=== PATIENT | male | born 1985 | race Caucasian/White ===

== ENCOUNTER 2022-09-17 17:20 | Inpatient (IN) | payer OTHER ==
[2022-09-17 18:50] VITALS: BMI 21.2
[2022-09-17] MEDS ORDERED: diazePAM 5 MG TABLET ONE ×2 (21:11→21:13)
[2022-09-17] MEDS: diazePAM 5 MG TABLET PO PRN (21:14)
[2022-09-17] MEDS ORDERED: DICYCLOMINE HCL 10 MG CAPSULE PO PRN (21:16)
[2022-09-17] MEDS ORDERED: BENZOCAINE/MENTHOL (CHLORASEPTIC ) LOZENGE MM PRN (21:16)
[2022-09-17] MEDS ORDERED: ACETAMINOPHEN 325 MG TABLET (FP) PO PRN (21:16)
[2022-09-17] MEDS ORDERED: NICOTINE 10 MG CARTRIDGE (INHALER) IH PRN (21:16)
[2022-09-17] MEDS ORDERED: IBUPROFEN 600 MG TABLET (FP) PO PRN (21:16)
[2022-09-17] MEDS ORDERED: BENZONATATE 200 MG CAPSULE PO PRN (21:16)
[2022-09-17] MEDS ORDERED: LOPERAMIDE HCL 2 MG CAPSULE PO PRN (21:16)
[2022-09-17] MEDS ORDERED: guaiFENesin 600 MG TABLET.ER (FP) PO PRN (21:16)
[2022-09-17] MEDS ORDERED: MAGNESIUM HYDROX 2400MG/30ML ORAL SUSPENSION 30 ML CUP PO PRN (21:16)
[2022-09-17] MEDS ORDERED: BISMUTH SUBSALICYLATE 524 MG/30 ML PO PRN (21:16)
[2022-09-17] MEDS ORDERED: IBUPROFEN 400 MG TABLET (FP) PO PRN (21:16)
[2022-09-17] MEDS ORDERED: NALOXONE HCL 0.4 MG/ML VIAL IM PRN (21:16)
[2022-09-17] MEDS ORDERED: ONDANSETRON *ODT* 4 MG TABLET SL PRN (21:16)
[2022-09-17] MEDS ORDERED: POLYETHYLENE GLYCOL (HEALTHYLAX) 3350 17 GM PACKET PO PRN (21:16)
[2022-09-17] MEDS ORDERED: NALOXONE HCL (KLOXXADO) 8 MG SPRAY NS PRN (21:16)
[2022-09-17] MEDS ORDERED: MELATONIN 5 MG TABLETS PO SCH (22:00)
[2022-09-17] MEDS ORDERED: IBUPROFEN 600 MG TABLET (FP) PO ONE (22:34)
[2022-09-17] MEDS: THIAMINE HCL 100 MG TABLET (FP) PO SCH (22:36)
[2022-09-17] MEDS: hydrOXYzine PAMOATE 25 MG CAPSULE (FP) PO PRN (22:59)
[2022-09-17] MEDS: diazePAM 5 MG TABLET PO SCH (23:03)
[2022-09-18] MEDS: diazePAM 5 MG TABLET PO SCH ×4 (05:46→22:02)
[2022-09-18] MEDS ORDERED: methaDONE HCL 10 MG TABLET PO ONE ×2 (09:32)
[2022-09-18] MEDS: PRENATAL VITAMINS W/ FOLIC ACID TABLET (FP) PO SCH (10:35)
[2022-09-18] MEDS: diazePAM 5 MG TABLET PO PRN (13:25)
[2022-09-18] MEDS: THIAMINE HCL 100 MG TABLET (FP) PO SCH (22:02)
[2022-09-18] MEDS: traZODone HCL 50 MG TABLET (FP) PO SCH (22:02)
[2022-09-19] MEDS: diazePAM 5 MG TABLET PO SCH ×3 (05:19→22:55)
[2022-09-19] MEDS ORDERED: methaDONE HCL 10 MG TABLET PO ONE (09:36)
[2022-09-19] MEDS: PRENATAL VITAMINS W/ FOLIC ACID TABLET (FP) PO SCH (10:39)
[2022-09-19] MEDS ORDERED: NICOTINE POLACRILEX 2 MG GUM BUC PRN (11:07)
[2022-09-19] MEDS: NICOTINE 14 MG/24 HOURS TOPICAL PATCH TD SCH (12:06)
[2022-09-19] MEDS: diazePAM 5 MG TABLET PO PRN (20:25)
[2022-09-19] MEDS: hydrOXYzine PAMOATE 25 MG CAPSULE (FP) PO PRN (22:39)
[2022-09-19] MEDS: traZODone HCL 50 MG TABLET (FP) PO SCH (22:39)
[2022-09-19] MEDS: THIAMINE HCL 100 MG TABLET (FP) PO SCH (22:40)
[2022-09-20] MEDS: diazePAM 5 MG TABLET PO SCH ×2 (05:42→18:55)
[2022-09-20] MEDS ORDERED: methaDONE HCL 10 MG TABLET PO SCH (06:00)
[2022-09-20] MEDS: NICOTINE 14 MG/24 HOURS TOPICAL PATCH TD SCH (10:04)
[2022-09-20] MEDS: diazePAM 5 MG TABLET PO PRN ×2 (10:04→14:37)
[2022-09-20] MEDS: PRENATAL VITAMINS W/ FOLIC ACID TABLET (FP) PO SCH (10:04)
[2022-09-20] MEDS: MAG HYDROX/AL HYDROX/SIMETH 30 ML UNIT-DOSE CUP PO PRN ×2 (11:29→22:24)
[2022-09-20 12:18] LABS: HEMATOCRIT 39.4 % (35.4-49); MCH 28.4 pg (25.7-33.7); MEAN CELL VOLUME 86.1 fl (80-96); MEAN PLT VOLUME 9.9 fl (7.5-11.1); PLATELET COUNT 187 10^3/uL (134-434); RBC 4.58 M/mm3 (4.00-5.60); RDW 13.2 % (11.9-15.9); WHITE BLOOD COUNT 4.9 K/mm3 (4.0-10.0)
[2022-09-20 12:26] LABS: POTASSIUM 4.1 mmol/L (3.5-5.1)
[2022-09-20 12:32] LABS: CALCIUM 9.3 mg/dL (8.5-10.1)
[2022-09-20 12:33] LABS: ALBUMIN 3.3 g/dl (3.4-5.0); BLOOD UREA NITROGEN 14.3 mg/dL (7-18)
[2022-09-20 12:36] LABS: BILIRUBIN,TOTAL 0.2 mg/dL (0.2-1); TOT PROT 6.6 g/dl (6.4-8.2)
[2022-09-20] MEDS: traZODone HCL 50 MG TABLET (FP) PO SCH (22:23)
[2022-09-20] MEDS: THIAMINE HCL 100 MG TABLET (FP) PO SCH (22:23)
[2022-09-21 05:46] VITALS: RESP 18
[2022-09-21] MEDS ORDERED: diazePAM 5 MG TABLET PO ONE (06:00)
[2022-09-21] MEDS: PRENATAL VITAMINS W/ FOLIC ACID TABLET (FP) PO SCH (09:10)
[2022-09-21] MEDS: NICOTINE 14 MG/24 HOURS TOPICAL PATCH TD SCH (09:11)
[2022-09-21 09:43] VITALS: BP 113/68; PULSE 66; TEMP 97.3
== END 2022-09-21 12:32 | disposition other institution (70) | DRG 773 ==
LOC: YASAS 17:20 → Y6N 22:27
PROVIDERS: ADMIT Allergy & Immunology; ATTEND Surgery
PROC: HZ2ZZZZ Detoxification Services for Substance Abuse Treatment (ICD-10-PCS; principal; 2022-09-17)
DX: F13.230 Sedative, hypnotic or anxiolytic dependence with withdrawal, uncomplicated (principal); F11.20 Opioid dependence, uncomplicated; F14.20 Cocaine dependence, uncomplicated; F17.213 Nicotine dependence, cigarettes, with withdrawal; F19.282 Other psychoactive substance dependence with psychoactive substance-induced sleep disorder; F19.280 Other psychoactive substance dependence with psychoactive substance-induced anxiety disorder; F19.24 Other psychoactive substance dependence with psychoactive substance-induced mood disorder; F32.9 Major depressive disorder, single episode, unspecified; K21.9 Gastro-esophageal reflux disease without esophagitis; Z62.810 Personal history of physical and sexual abuse in childhood; Z86.69 Personal history of other diseases of the nervous system and sense organs
CPT/HCPCS: 36415; 80053; 85027; 86780; 87635; 87811; 93005; 93010

== ENCOUNTER 2022-09-21 12:27 | Inpatient (IN) | payer OTHER ==
[~2022-09-21 12:27] MED LIST: AMMONIUM LACTATE 12% LOTION 225 GM BOTTLE TP PRN; BENZOCAINE/MENTHOL (CHLORASEPTIC ) LOZENGE MM PRN; BENZONATATE 200 MG CAPSULE PO PRN; COLLOIDAL OATMEAL 1 BAR EACH TP PRN; LOPERAMIDE HCL 2 MG CAPSULE PO PRN; MAGNESIUM HYDROX 2400MG/30ML ORAL SUSPENSION 30 ML CUP PO PRN; METHOCARBAMOL 500 MG TABLET PO PRN; NALOXONE HCL (KLOXXADO) 8 MG SPRAY NS PRN; NALOXONE HCL 0.4 MG/ML VIAL IVPUSH PRN; NICOTINE 14 MG/24 HOURS TOPICAL PATCH TD PRN; NICOTINE POLACRILEX 2 MG GUM BUC PRN; POLYETHYLENE GLYCOL (HEALTHYLAX) 3350 17 GM PACKET PO PRN; guaiFENesin 600 MG TABLET.ER (FP) PO PRN
[2022-09-21] MEDS: THIAMINE HCL 100 MG TABLET (FP) PO SCH (21:14)
[2022-09-21] MEDS: traZODone HCL 50 MG TABLET (FP) PO SCH (21:14)
[2022-09-21] MEDS: MELATONIN 5 MG TABLETS PO SCH (21:14)
[2022-09-21] MEDS: MAG HYDROX/AL HYDROX/SIMETH 30 ML UNIT-DOSE CUP PO PRN (21:15)
[2022-09-22] MEDS ORDERED: methaDONE HCL 10 MG TABLET PO SCH (06:00)
[2022-09-22] MEDS: PRENATAL VITAMINS W/ FOLIC ACID TABLET (FP) PO SCH (09:57)
[2022-09-22] MEDS: MAG HYDROX/AL HYDROX/SIMETH 30 ML UNIT-DOSE CUP PO PRN (09:57)
[2022-09-22] MEDS: traZODone HCL 50 MG TABLET (FP) PO SCH (21:18)
[2022-09-22] MEDS: THIAMINE HCL 100 MG TABLET (FP) PO SCH (21:18)
[2022-09-22] MEDS: MELATONIN 5 MG TABLETS PO SCH (21:18)
[2022-09-23] MEDS: hydrOXYzine PAMOATE 25 MG CAPSULE (FP) PO PRN (09:57)
[2022-09-23] MEDS: PRENATAL VITAMINS W/ FOLIC ACID TABLET (FP) PO SCH (09:58)
[2022-09-23] MEDS: THIAMINE HCL 100 MG TABLET (FP) PO SCH (21:12)
[2022-09-23] MEDS: MAG HYDROX/AL HYDROX/SIMETH 30 ML UNIT-DOSE CUP PO PRN (21:12)
[2022-09-23] MEDS: MELATONIN 5 MG TABLETS PO SCH (21:12)
[2022-09-23] MEDS: traZODone HCL 50 MG TABLET (FP) PO SCH (21:13)
[2022-09-24] MEDS: PRENATAL VITAMINS W/ FOLIC ACID TABLET (FP) PO SCH (09:40)
[2022-09-24] MEDS: BACITRACIN ZINC 15 GM TUBE TOPICAL OINTMENT TP SCH ×2 (13:05→21:23)
[2022-09-24] MEDS: MAG HYDROX/AL HYDROX/SIMETH 30 ML UNIT-DOSE CUP PO PRN ×2 (13:07→21:23)
[2022-09-24] MEDS: traZODone HCL 50 MG TABLET (FP) PO SCH (21:23)
[2022-09-24] MEDS: MELATONIN 5 MG TABLETS PO SCH (21:23)
[2022-09-24] MEDS: THIAMINE HCL 100 MG TABLET (FP) PO SCH (21:23)
[2022-09-25] MEDS: BACITRACIN ZINC 15 GM TUBE TOPICAL OINTMENT TP SCH ×2 (10:14→21:20)
[2022-09-25] MEDS: PRENATAL VITAMINS W/ FOLIC ACID TABLET (FP) PO SCH (10:15)
[2022-09-25] MEDS: THIAMINE HCL 100 MG TABLET (FP) PO SCH (21:19)
[2022-09-25] MEDS: MELATONIN 5 MG TABLETS PO SCH (21:20)
[2022-09-25] MEDS: MAG HYDROX/AL HYDROX/SIMETH 30 ML UNIT-DOSE CUP PO PRN (21:20)
[2022-09-25] MEDS: traZODone HCL 50 MG TABLET (FP) PO SCH (21:20)
[2022-09-26] MEDS: PRENATAL VITAMINS W/ FOLIC ACID TABLET (FP) PO SCH (10:19)
[2022-09-26] MEDS: BACITRACIN ZINC 15 GM TUBE TOPICAL OINTMENT TP SCH ×2 (10:20→21:49)
[2022-09-26] MEDS: SIMETHICONE 80 MG TAB.CHEW (FP) PO PRN ×3 (12:39→21:30)
[2022-09-26] MEDS: THIAMINE HCL 100 MG TABLET (FP) PO SCH (21:30)
[2022-09-26] MEDS: MELATONIN 5 MG TABLETS PO SCH (21:30)
[2022-09-26] MEDS: traZODone HCL 50 MG TABLET (FP) PO SCH (21:30)
[2022-09-27] MEDS: PRENATAL VITAMINS W/ FOLIC ACID TABLET (FP) PO SCH (10:07)
[2022-09-27] MEDS: BACITRACIN ZINC 15 GM TUBE TOPICAL OINTMENT TP SCH ×2 (10:09→21:15)
[2022-09-27] MEDS: MAG HYDROX/AL HYDROX/SIMETH 30 ML UNIT-DOSE CUP PO PRN (20:01)
[2022-09-27] MEDS: traZODone HCL 50 MG TABLET (FP) PO SCH (21:15)
[2022-09-27] MEDS: THIAMINE HCL 100 MG TABLET (FP) PO SCH (21:15)
[2022-09-27] MEDS: MELATONIN 5 MG TABLETS PO SCH (21:15)
[2022-09-28] MEDS: PRENATAL VITAMINS W/ FOLIC ACID TABLET (FP) PO SCH (10:24)
[2022-09-28] MEDS: BACITRACIN ZINC 15 GM TUBE TOPICAL OINTMENT TP SCH ×2 (10:25→21:21)
[2022-09-28] MEDS: SIMETHICONE 80 MG TAB.CHEW (FP) PO PRN (21:20)
[2022-09-28] MEDS: traZODone HCL 50 MG TABLET (FP) PO SCH (21:20)
[2022-09-28] MEDS: THIAMINE HCL 100 MG TABLET (FP) PO SCH (21:20)
[2022-09-28] MEDS: MELATONIN 5 MG TABLETS PO SCH (21:20)
[2022-09-29] MEDS: PRENATAL VITAMINS W/ FOLIC ACID TABLET (FP) PO SCH (09:57)
[2022-09-29] MEDS: BACITRACIN ZINC 15 GM TUBE TOPICAL OINTMENT TP SCH ×2 (09:57→21:08)
[2022-09-29] MEDS: MAG HYDROX/AL HYDROX/SIMETH 30 ML UNIT-DOSE CUP PO PRN (09:58)
[2022-09-29] MEDS: SIMETHICONE 80 MG TAB.CHEW (FP) PO PRN ×2 (13:05→21:08)
[2022-09-29] MEDS: PANTOPRAZOLE 20 MG TABLET PO SCH (15:21)
[2022-09-29] MEDS: THIAMINE HCL 100 MG TABLET (FP) PO SCH (21:07)
[2022-09-29] MEDS: MELATONIN 5 MG TABLETS PO SCH (21:07)
[2022-09-29] MEDS: traZODone HCL 50 MG TABLET (FP) PO SCH (21:08)
[2022-09-30] MEDS ORDERED: BACITRACIN 0.9 GM PACKET TP PRN (08:21)
[2022-09-30] MEDS: PANTOPRAZOLE 20 MG TABLET PO SCH (09:52)
[2022-09-30] MEDS: PRENATAL VITAMINS W/ FOLIC ACID TABLET (FP) PO SCH (09:52)
[2022-09-30] MEDS: THIAMINE HCL 100 MG TABLET (FP) PO SCH (21:19)
[2022-09-30] MEDS: traZODone HCL 50 MG TABLET (FP) PO SCH (21:19)
[2022-09-30] MEDS: MELATONIN 5 MG TABLETS PO SCH (21:19)
[2022-10-01] MEDS: PRENATAL VITAMINS W/ FOLIC ACID TABLET (FP) PO SCH (09:35)
[2022-10-01] MEDS: PANTOPRAZOLE 20 MG TABLET PO SCH (09:35)
[2022-10-01] MEDS: NICOTINE 10 MG CARTRIDGE (INHALER) IH PRN (09:36)
[2022-10-01] MEDS: THIAMINE HCL 100 MG TABLET (FP) PO SCH (21:11)
[2022-10-01] MEDS: MELATONIN 5 MG TABLETS PO SCH (21:12)
[2022-10-01] MEDS: traZODone HCL 50 MG TABLET (FP) PO SCH (21:12)
[2022-10-01] MEDS: SIMETHICONE 80 MG TAB.CHEW (FP) PO PRN (21:12)
[2022-10-02] MEDS: PANTOPRAZOLE 20 MG TABLET PO SCH (09:36)
[2022-10-02] MEDS: PRENATAL VITAMINS W/ FOLIC ACID TABLET (FP) PO SCH (09:36)
[2022-10-02] MEDS: traZODone HCL 50 MG TABLET (FP) PO SCH (21:08)
[2022-10-02] MEDS: THIAMINE HCL 100 MG TABLET (FP) PO SCH (21:08)
[2022-10-02] MEDS: SIMETHICONE 80 MG TAB.CHEW (FP) PO PRN (21:08)
[2022-10-02] MEDS: MELATONIN 5 MG TABLETS PO SCH (21:08)
[2022-10-03] MEDS: PRENATAL VITAMINS W/ FOLIC ACID TABLET (FP) PO SCH (10:14)
[2022-10-03] MEDS: PANTOPRAZOLE 20 MG TABLET PO SCH (10:14)
[2022-10-03] MEDS: ACETAMINOPHEN 325 MG TABLET (FP) PO PRN (10:15)
[2022-10-03] MEDS: NICOTINE 10 MG CARTRIDGE (INHALER) IH PRN (12:17)
[2022-10-03] MEDS: IBUPROFEN 400 MG TABLET (FP) PO PRN (12:19)
[2022-10-03] MEDS: MELATONIN 5 MG TABLETS PO SCH (21:06)
[2022-10-03] MEDS: SIMETHICONE 80 MG TAB.CHEW (FP) PO PRN (21:06)
[2022-10-03] MEDS: THIAMINE HCL 100 MG TABLET (FP) PO SCH (21:06)
[2022-10-03] MEDS: traZODone HCL 50 MG TABLET (FP) PO SCH (21:06)
[2022-10-04] MEDS: PANTOPRAZOLE 20 MG TABLET PO SCH (09:01)
[2022-10-04] MEDS: NICOTINE 10 MG CARTRIDGE (INHALER) IH PRN ×2 (09:01→21:09)
[2022-10-04] MEDS: PRENATAL VITAMINS W/ FOLIC ACID TABLET (FP) PO SCH (09:01)
[2022-10-04] MEDS: MELATONIN 5 MG TABLETS PO SCH (21:09)
[2022-10-04] MEDS: THIAMINE HCL 100 MG TABLET (FP) PO SCH (21:09)
[2022-10-04] MEDS: traZODone HCL 50 MG TABLET (FP) PO SCH (21:09)
[2022-10-05] MEDS: NICOTINE 10 MG CARTRIDGE (INHALER) IH PRN ×2 (08:23→13:42)
[2022-10-05] MEDS: PANTOPRAZOLE 20 MG TABLET PO SCH (09:43)
[2022-10-05] MEDS: PRENATAL VITAMINS W/ FOLIC ACID TABLET (FP) PO SCH (09:44)
[2022-10-05] MEDS: SIMETHICONE 80 MG TAB.CHEW (FP) PO PRN (21:01)
[2022-10-05] MEDS: THIAMINE HCL 100 MG TABLET (FP) PO SCH (21:01)
[2022-10-05] MEDS: traZODone HCL 50 MG TABLET (FP) PO SCH (21:01)
[2022-10-05] MEDS: MELATONIN 5 MG TABLETS PO SCH (21:01)
[2022-10-06] MEDS: NICOTINE 10 MG CARTRIDGE (INHALER) IH PRN (08:38)
[2022-10-06] MEDS: PRENATAL VITAMINS W/ FOLIC ACID TABLET (FP) PO SCH (09:35)
[2022-10-06] MEDS: PANTOPRAZOLE 20 MG TABLET PO SCH (09:35)
[2022-10-06] MEDS: THIAMINE HCL 100 MG TABLET (FP) PO SCH (21:07)
[2022-10-06] MEDS: MELATONIN 5 MG TABLETS PO SCH (21:07)
[2022-10-06] MEDS: traZODone HCL 50 MG TABLET (FP) PO SCH (21:07)
[2022-10-06] MEDS: SIMETHICONE 80 MG TAB.CHEW (FP) PO PRN (21:07)
[2022-10-07] MEDS: PRENATAL VITAMINS W/ FOLIC ACID TABLET (FP) PO SCH (10:02)
[2022-10-07] MEDS: PANTOPRAZOLE 20 MG TABLET PO SCH (10:02)
[2022-10-07] MEDS: NICOTINE 10 MG CARTRIDGE (INHALER) IH PRN ×2 (13:54→21:09)
[2022-10-07] MEDS: SIMETHICONE 80 MG TAB.CHEW (FP) PO PRN (21:09)
[2022-10-07] MEDS: THIAMINE HCL 100 MG TABLET (FP) PO SCH (21:09)
[2022-10-07] MEDS: traZODone HCL 50 MG TABLET (FP) PO SCH (21:09)
[2022-10-07] MEDS: MELATONIN 5 MG TABLETS PO SCH (21:09)
[2022-10-08] MEDS: NICOTINE 10 MG CARTRIDGE (INHALER) IH PRN ×3 (06:06→18:46)
[2022-10-08] MEDS: PANTOPRAZOLE 20 MG TABLET PO SCH (09:26)
[2022-10-08] MEDS: PRENATAL VITAMINS W/ FOLIC ACID TABLET (FP) PO SCH (09:27)
[2022-10-08] MEDS: traZODone HCL 50 MG TABLET (FP) PO SCH (21:13)
[2022-10-08] MEDS: MELATONIN 5 MG TABLETS PO SCH (21:13)
[2022-10-08] MEDS: THIAMINE HCL 100 MG TABLET (FP) PO SCH (21:13)
[2022-10-09] MEDS: NICOTINE 10 MG CARTRIDGE (INHALER) IH PRN ×4 (08:53→21:25)
[2022-10-09] MEDS: PRENATAL VITAMINS W/ FOLIC ACID TABLET (FP) PO SCH (10:05)
[2022-10-09] MEDS: PANTOPRAZOLE 20 MG TABLET PO SCH (10:05)
[2022-10-09] MEDS: THIAMINE HCL 100 MG TABLET (FP) PO SCH (21:25)
[2022-10-09] MEDS: MELATONIN 5 MG TABLETS PO SCH (21:25)
[2022-10-09] MEDS: traZODone HCL 50 MG TABLET (FP) PO SCH (21:25)
[2022-10-10] MEDS: NICOTINE 10 MG CARTRIDGE (INHALER) IH PRN ×4 (06:23→21:11)
[2022-10-10] MEDS: PANTOPRAZOLE 20 MG TABLET PO SCH (09:34)
[2022-10-10] MEDS: PRENATAL VITAMINS W/ FOLIC ACID TABLET (FP) PO SCH (09:34)
[2022-10-10] MEDS: SIMETHICONE 80 MG TAB.CHEW (FP) PO PRN (21:10)
[2022-10-10] MEDS: THIAMINE HCL 100 MG TABLET (FP) PO SCH (21:10)
[2022-10-10] MEDS: MELATONIN 5 MG TABLETS PO SCH (21:10)
[2022-10-10] MEDS: traZODone HCL 50 MG TABLET (FP) PO SCH (21:10)
[2022-10-11] MEDS: NICOTINE 10 MG CARTRIDGE (INHALER) IH PRN ×3 (06:07→21:31)
[2022-10-11] MEDS: ACETAMINOPHEN 325 MG TABLET (FP) PO PRN (09:40)
[2022-10-11] MEDS: PRENATAL VITAMINS W/ FOLIC ACID TABLET (FP) PO SCH (09:41)
[2022-10-11] MEDS: PANTOPRAZOLE 20 MG TABLET PO SCH (09:41)
[2022-10-11] MEDS: traZODone HCL 50 MG TABLET (FP) PO SCH (21:32)
[2022-10-11] MEDS: THIAMINE HCL 100 MG TABLET (FP) PO SCH (21:32)
[2022-10-11] MEDS: IBUPROFEN 600 MG TABLET (FP) PO PRN (21:32)
[2022-10-11] MEDS: SIMETHICONE 80 MG TAB.CHEW (FP) PO PRN (21:32)
[2022-10-11] MEDS: MELATONIN 5 MG TABLETS PO SCH (21:32)
[2022-10-12] MEDS: PRENATAL VITAMINS W/ FOLIC ACID TABLET (FP) PO SCH (09:18)
[2022-10-12] MEDS: PANTOPRAZOLE 20 MG TABLET PO SCH (09:18)
[2022-10-12] MEDS: IBUPROFEN 600 MG TABLET (FP) PO PRN (09:19)
[2022-10-12] MEDS: NICOTINE 10 MG CARTRIDGE (INHALER) IH PRN ×2 (09:21→21:06)
[2022-10-12] MEDS: MELATONIN 5 MG TABLETS PO SCH (21:05)
[2022-10-12] MEDS: THIAMINE HCL 100 MG TABLET (FP) PO SCH (21:05)
[2022-10-12] MEDS: traZODone HCL 100 MG TABLET (FP) PO SCH (21:06)
[2022-10-13] MEDS ORDERED: methaDONE HCL 10 MG TABLET PO SCH ×2 (06:00)
[2022-10-13] MEDS: NICOTINE 10 MG CARTRIDGE (INHALER) IH PRN ×3 (06:16→21:09)
[2022-10-13] MEDS: IBUPROFEN 400 MG TABLET (FP) PO PRN (09:41)
[2022-10-13] MEDS: PRENATAL VITAMINS W/ FOLIC ACID TABLET (FP) PO SCH (09:41)
[2022-10-13] MEDS: PANTOPRAZOLE 20 MG TABLET PO SCH (09:41)
[2022-10-13] MEDS: MELATONIN 5 MG TABLETS PO SCH (21:09)
[2022-10-13] MEDS: traZODone HCL 100 MG TABLET (FP) PO SCH (21:09)
[2022-10-13] MEDS: THIAMINE HCL 100 MG TABLET (FP) PO SCH (21:09)
[2022-10-14] MEDS: PANTOPRAZOLE 20 MG TABLET PO SCH (09:35)
[2022-10-14] MEDS: PRENATAL VITAMINS W/ FOLIC ACID TABLET (FP) PO SCH (09:35)
[2022-10-14] MEDS: NICOTINE 10 MG CARTRIDGE (INHALER) IH PRN ×2 (09:37→21:06)
[2022-10-14] MEDS: IBUPROFEN 600 MG TABLET (FP) PO PRN (17:06)
[2022-10-14] MEDS: traZODone HCL 100 MG TABLET (FP) PO SCH (21:06)
[2022-10-14] MEDS: MELATONIN 5 MG TABLETS PO SCH (21:06)
[2022-10-14] MEDS: THIAMINE HCL 100 MG TABLET (FP) PO SCH (21:06)
[2022-10-15] MEDS: NICOTINE 10 MG CARTRIDGE (INHALER) IH PRN ×3 (06:11→21:09)
[2022-10-15] MEDS: IBUPROFEN 600 MG TABLET (FP) PO PRN (09:35)
[2022-10-15] MEDS: PANTOPRAZOLE 20 MG TABLET PO SCH (09:35)
[2022-10-15] MEDS: PRENATAL VITAMINS W/ FOLIC ACID TABLET (FP) PO SCH (09:35)
[2022-10-15] MEDS: hydrOXYzine PAMOATE 25 MG CAPSULE (FP) PO PRN (12:01)
[2022-10-15] MEDS: traZODone HCL 100 MG TABLET (FP) PO SCH (21:09)
[2022-10-15] MEDS: MELATONIN 5 MG TABLETS PO SCH (21:09)
[2022-10-15] MEDS: THIAMINE HCL 100 MG TABLET (FP) PO SCH (21:09)
[2022-10-16] MEDS: NICOTINE 10 MG CARTRIDGE (INHALER) IH PRN ×4 (06:09→21:08)
[2022-10-16] MEDS: PRENATAL VITAMINS W/ FOLIC ACID TABLET (FP) PO SCH (09:22)
[2022-10-16] MEDS: IBUPROFEN 600 MG TABLET (FP) PO PRN (09:23)
[2022-10-16] MEDS: PANTOPRAZOLE 20 MG TABLET PO SCH (09:23)
[2022-10-16] MEDS: hydrOXYzine PAMOATE 25 MG CAPSULE (FP) PO PRN (13:09)
[2022-10-16] MEDS: traZODone HCL 100 MG TABLET (FP) PO SCH (21:08)
[2022-10-16] MEDS: THIAMINE HCL 100 MG TABLET (FP) PO SCH (21:08)
[2022-10-16] MEDS: MELATONIN 5 MG TABLETS PO SCH (21:08)
[2022-10-17] MEDS: NICOTINE 10 MG CARTRIDGE (INHALER) IH PRN ×4 (06:13→21:18)
[2022-10-17] MEDS: PRENATAL VITAMINS W/ FOLIC ACID TABLET (FP) PO SCH (09:25)
[2022-10-17] MEDS: PANTOPRAZOLE 20 MG TABLET PO SCH (09:25)
[2022-10-17] MEDS: hydrOXYzine PAMOATE 25 MG CAPSULE (FP) PO PRN (14:27)
[2022-10-17] MEDS: MELATONIN 5 MG TABLETS PO SCH (21:18)
[2022-10-17] MEDS: THIAMINE HCL 100 MG TABLET (FP) PO SCH (21:18)
[2022-10-17] MEDS: traZODone HCL 100 MG TABLET (FP) PO SCH (21:18)
[2022-10-18] MEDS: NICOTINE 10 MG CARTRIDGE (INHALER) IH PRN ×3 (06:07→18:35)
[2022-10-18] MEDS: MAG HYDROX/AL HYDROX/SIMETH 30 ML UNIT-DOSE CUP PO PRN (09:24)
[2022-10-18] MEDS: PRENATAL VITAMINS W/ FOLIC ACID TABLET (FP) PO SCH (09:24)
[2022-10-18] MEDS: PANTOPRAZOLE 20 MG TABLET PO SCH (09:24)
[2022-10-18] MEDS: SIMETHICONE 80 MG TAB.CHEW (FP) PO PRN (12:39)
[2022-10-18] MEDS: hydrOXYzine PAMOATE 25 MG CAPSULE (FP) PO PRN (13:11)
[2022-10-18] MEDS: MELATONIN 5 MG TABLETS PO SCH (21:17)
[2022-10-18] MEDS: THIAMINE HCL 100 MG TABLET (FP) PO SCH (21:17)
[2022-10-18] MEDS: traZODone HCL 100 MG TABLET (FP) PO SCH (21:17)
[2022-10-19] MEDS: NICOTINE 10 MG CARTRIDGE (INHALER) IH PRN (06:19)
[2022-10-19 06:53] VITALS: BP 103/73; PULSE 69; RESP 16; TEMP 97.7
[2022-10-19] MEDS: PRENATAL VITAMINS W/ FOLIC ACID TABLET (FP) PO SCH (09:01)
[2022-10-19] MEDS: PANTOPRAZOLE 20 MG TABLET PO SCH (09:01)
== END 2022-10-19 09:12 | disposition home or self-care (01) | DRG 772 ==
LOC: YASAS 12:27 → Y3E 12:28
PROVIDERS: ADMIT Allergy & Immunology; ATTEND Psychiatry & Neurology Pain Medicine
PROC: HZ42ZZZ Group Counseling for Substance Abuse Treatment, Cognitive-Behavioral (ICD-10-PCS; principal; 2022-09-21)
DX: F13.230 Sedative, hypnotic or anxiolytic dependence with withdrawal, uncomplicated (principal); F11.20 Opioid dependence, uncomplicated; F14.20 Cocaine dependence, uncomplicated; F17.213 Nicotine dependence, cigarettes, with withdrawal; F32.A Depression, unspecified; K21.9 Gastro-esophageal reflux disease without esophagitis; L72.8 Other follicular cysts of the skin and subcutaneous tissue

== ENCOUNTER 2024-03-14 09:14 | Inpatient (IN) | payer OTHER ==
[2024-03-14 09:48] VITALS: BMI 26.9
[2024-03-14] MEDS ORDERED: ACETAMINOPHEN 325 MG TABLET (FP) PO PRN (11:17)
[2024-03-14] MEDS ORDERED: ONDANSETRON *ODT* 4 MG TABLET SL PRN (11:17)
[2024-03-14] MEDS ORDERED: guaiFENesin 600 MG TABLET.ER (FP) PO PRN (11:17)
[2024-03-14] MEDS ORDERED: BISMUTH SUBSALICYLATE 262 MG/15 ML BTL PO PRN (11:17)
[2024-03-14] MEDS ORDERED: MAGNESIUM HYDROX 2400MG/30ML ORAL SUSPENSION 30 ML CUP PO PRN (11:17)
[2024-03-14] MEDS ORDERED: LOPERAMIDE HCL 2 MG CAPSULE PO PRN (11:17)
[2024-03-14] MEDS ORDERED: BENZOCAINE/MENTHOL (CHLORASEPTIC ) LOZENGE MM PRN (11:17)
[2024-03-14] MEDS ORDERED: IBUPROFEN 400 MG TABLET (FP) PO PRN (11:17)
[2024-03-14] MEDS ORDERED: POLYETHYLENE GLYCOL (HEALTHYLAX) 3350 17 GM PACKET PO PRN (11:17)
[2024-03-14] MEDS ORDERED: BENZONATATE 200 MG CAPSULE PO PRN (11:17)
[2024-03-14] MEDS ORDERED: DICYCLOMINE HCL 10 MG CAPSULE PO PRN (11:17)
[2024-03-14] MEDS ORDERED: NALOXONE (NARCAN) HCL 4 MG/0.1 ML SPRAY NS PRN (11:17)
[2024-03-14] MEDS ORDERED: NICOTINE POLACRILEX 2 MG GUM BUC PRN (11:17)
[2024-03-14] MEDS ORDERED: IBUPROFEN 600 MG TABLET (FP) PO PRN (11:17)
[2024-03-14] MEDS ORDERED: diazePAM 5 MG TABLET ONE (12:00)
[2024-03-14] MEDS: diazePAM 5 MG TABLET PO SCH (12:03)
[2024-03-14] MEDS: METHOCARBAMOL 500 MG TABLET PO PRN (17:24)
[2024-03-14] MEDS: diazePAM 5 MG TABLET PO PRN (22:50)
[2024-03-14] MEDS: THIAMINE 100 MG TABLET PO SCH (22:50)
[2024-03-14] MEDS: MELATONIN 5 MG TABLETS PO SCH (22:51)
[2024-03-14] MEDS: hydrOXYzine PAMOATE 25 MG CAPSULE (FP) PO PRN (22:51)
[2024-03-15] MEDS: PRENATAL VITAMINS W/ FOLIC ACID TABLET (FP) PO SCH (10:29)
[2024-03-15] MEDS: NICOTINE 14 MG/24 HOURS TOPICAL PATCH TD SCH (10:30)
[2024-03-15] MEDS: PANTOPRAZOLE 20 MG TABLET PO SCH (10:30)
[2024-03-15] MEDS ORDERED: methaDONE HCL 40 MG DISPERSABLE TABLET PO ONE (10:44)
[2024-03-15 11:24] LABS: HEMATOCRIT 41.3 % (35.4-49); HEMOGLOBIN 13.4 GM/dL (11.7-16.9); MCH 27.9 pg (25.7-33.7); MCHC 32.3 g/dl (32.0-35.9); MEAN CELL VOLUME 86.2 fl (80-96); MEAN PLT VOLUME 10.2 fl (7.5-11.1); PLATELET COUNT 218 10^3/uL (134-434); RDW 15.1 % (11.9-15.9); WHITE BLOOD COUNT 6.2 K/mm3 (4.0-10.0)
[2024-03-15] MEDS: GABAPENTIN 300 MG CAPSULE PO SCH (13:55)
[2024-03-15 14:15] LABS: POTASSIUM 4.1 mmol/L (3.5-5.1)
[2024-03-15 14:22] LABS: CALCIUM 9.2 mg/dL (8.5-10.1)
[2024-03-15 14:23] LABS: ALBUMIN 3.5 g/dl (3.4-5.0)
[2024-03-15 14:26] LABS: CREATININE 0.9 mg/dL (0.55-1.3)
[2024-03-15 14:27] LABS: BILIRUBIN,TOTAL 0.4 mg/dL (0.2-1)
[2024-03-15 14:28] LABS: TOT PROT 6.5 g/dl (6.4-8.2)
[2024-03-15] MEDS: traZODone HCL 50 MG TABLET (FP) PO SCH (22:10)
[2024-03-16] MEDS: diazePAM 5 MG TABLET PO SCH (05:43)
[2024-03-16] MEDS ORDERED: methaDONE HCL 10 MG TABLET PO SCH (06:00)
[2024-03-17] MEDS: diazePAM 5 MG TABLET PO SCH (06:01)
[2024-03-17] MEDS: MAG HYDROX/AL HYDROX/SIMETH 30 ML UNIT-DOSE CUP PO PRN (10:16)
[2024-03-17] MEDS: FAMOTIDINE 20 MG TABLET PO SCH (11:38)
[2024-03-17] MEDS ORDERED: NALOXONE (NYS OPIOID OVERDOSE PROGRAM) 4 MG/0.1 ML SPRAY NS PRN (13:00)
[2024-03-18] MEDS: diazePAM 5 MG TABLET PO ONE (05:42)
[2024-03-18 16:50] VITALS: BP 162/62; PULSE 88; RESP 17; TEMP 97.1
== END 2024-03-18 20:05 | disposition other institution (70) | DRG 773 ==
LOC: YASAS 09:14 → Y6N 11:49
PROVIDERS: ADMIT Allergy & Immunology; ATTEND Surgery
PROC: HZ2ZZZZ Detoxification Services for Substance Abuse Treatment (ICD-10-PCS; principal; 2024-03-14)
DX: F13.230 Sedative, hypnotic or anxiolytic dependence with withdrawal, uncomplicated (principal); F11.20 Opioid dependence, uncomplicated; F10.20 Alcohol dependence, uncomplicated; F14.20 Cocaine dependence, uncomplicated; F17.213 Nicotine dependence, cigarettes, with withdrawal; F19.280 Other psychoactive substance dependence with psychoactive substance-induced anxiety disorder; F19.282 Other psychoactive substance dependence with psychoactive substance-induced sleep disorder; F32.9 Major depressive disorder, single episode, unspecified; F41.9 Anxiety disorder, unspecified; K21.9 Gastro-esophageal reflux disease without esophagitis; Z86.69 Personal history of other diseases of the nervous system and sense organs
CPT/HCPCS: 36415; 80053; 80305; 80307; 85027; 86780; 93005; 93010